=== PATIENT | male | born 1985 | race Two or more races ===

== ENCOUNTER 2025-02-24 12:42 | Emergency (ER) | payer MEDICAID, OTHER ==
[~2025-02-24] VITALS: Ht 170.2 cm; Wt 104.8 kg
[2025-02-24] MEDS: SODIUM CHLORIDE 0.9% 1,000 ML IV ONE (13:30)
--- NOTE | 2025-02-24 13:35 | ED.PDOC ---
HPI (NEURO) HPI Comments This is a 39 year old male presenting to the ED with chief complaint of headache. Patient reports that he has been experiencing a left sided headache with associated left upper jaw pain for the past 3 days. Patient relays that he had taken Ibuprofen and Tylenol with no relief noted. Patient denies any fall, injury, numbness, weakness, tingling, or dizziness. Chief Complaint: Headache Time Seen by MD: 13:34 Reviewed Notes: Nurses Notes, Medications, Allergies Information Source: Patient Mode of Arrival: Ambulatory Severity: Moderate Headache Severity: Moderate Timing: Hours Duration: Since onset Prehospital treatment: None Headache Quality: Aching Headache Location: Temporal Onset: At rest Circumstances: Spontaneous Symptoms: None Associated Signs and Symptoms: Headache Past Medical History PAST MEDICAL HISTORY: Denies Surgical History: Denies all surgeries Family History Family History: Reviewed,noncontributory to illness Social History Smoker: Non-Smoker Alcohol: Denies ETOH Use Drugs: Denies Drug Use Lives In: Home Constitutional: denies: chills, diaphoresis, fatigue, fever, malaise, sweats, weakness, others EENTM: denies: blurred vision, double vision, ear bleeding, ear discharge, ear drainage, ear pain, ear ringing, eye pain, eye redness, hearing loss, mouth pain, mouth swelling, nasal discharge, nose bleeding, nose congestion, nose pain, photophobia, tearing, throat pain, throat swelling, voice changes, others Respiratory: denies: cough, hemoptysis, orthopnea, SOB at rest, shortness of breath, SOB with excertion, stridor, wheezing, others Cardiovascular: denies: chest pain, dizzy spells, diaphoresis, Dyspnea on exertion, edema, irregular heart beat, left arm pain, lightheadedness, palpitations, PND, syncope, others Gastrointestinal: denies: abdomen distended, abdominal pain, blood streaked bowels, constipated, diarrhea, dysphagia, difficulty swallowing, hematemesis, melena, nausea, poor appetite, poor fluid intake, rectal bleeding, rectal pain, vomiting, others Genitourinary: denies: burning, dysuria, flank pain, frequency, hematuria, incontinence, penile discharge, penile sore, pain, testicle pain, testicle swelling, urgency, others Neurological: reports: headache; denies: dizziness, fainting, left sided numbness, left sided weakness, numbness, paresthesia, pre-existing deficit, right sided numbness, right sided weakness, seizure, speech problems, tingling, tremors, weakness, others Musculoskeletal: denies: back pain, gout, joint pain, joint swelling, muscle pain, muscle stiffness, neck pain, others Integumetry: denies: bruises, change in color, change in hair/nails, dryness, laceration, lesions, lumps, rash, wounds, others Allergic/Immunocompromised: denies: Difficulty Healing, Frequent Infections, Hives, Itching, others Hematologic/Lymphatic: denies: anemia, blood clots, easy bleeding, easy bruising, swollen glands, others Endocrine: denies: excessive hunger, excessive sweating, excessive thirst, excessive urination, flushing, intolerance to cold, intolerance to heat, unexplained weight gain, unexplained weight loss, others Psychiatric: denies: anxiety, bipolar disorder, depression, hopeless, panic disorder, schizophrenia, sleepless, suicidal, others All Other Systems: Reviewed and Negative Physical Exam General Appearance: No Apparent Distress, Normal HEENT: Normal ENT Inspection, Pharynx Normal, TMs Normal Neck: Full Range of Motion, Non-Tender, Normal, Normal Inspection Respiratory: Chest Non-Tender, Lungs Clear, No Accessory Muscle Use, No Respiratory Distress, Normal Breath Sounds Cardiovascular: No Edema, No JVD, No Murmur, No Gallop, Normal Peripheral Pulses, Regular Rate/Rhythm Breast Exam: Deferred Gastrointestinal: No Organomegaly, Non Tender, No Pulsatile Mass, Normal Bowel Sounds, Soft Genitalia: Deferred Pelvic: Deferred Rectal: Deferred Extremities: No calf tenderness, Normal capillary refill, Normal inspection, Normal range of motion, Non-tender, No pedal edema Musculoskeletal : Apperance: Normal Neurologic: Alert, fruit or nut picker II-XII nml as Tested, No Motor Deficits, Normal Affect, Normal Mood, No Sensory Deficits Cerebellar Function: Normal Reflexes: Normal Skin: Dry, Normal Color, Warm Lymphatic: No Adenopathy Was a procedure done? Was a procedure done?: No Differential Diagnosis (SZ) Seizure: N/A CVA: Other (Migraine) X-Ray, Labs, Meds, VS Vital Signs Date Time Temp Pulse Resp B/P (MAP) Pulse Ox O2 Delivery O2 Flow Rate FiO2 02/24/25 16:19 100 17 97 Room Air* 0 21 02/24/25 15:15 98.4 02/24/25 14:05 98.6 100 17 145/87 (106) 97 98.6 02/24/25 12:44 98.7 103 16 147/85 97 98.7 Current Medications Medications (Trade) Dose Ordered Sig/Mariia Route Start Time Stop Time Status Last Admin Sodium Chloride 1,000 ml @ 1,000 mls/hr Q1H ONCE IV 02/24/25 13:30 02/24/25 14:29 DC 02/24/25 13:30 Ketorolac Tromethamine (Toradol Injection) 15 mg ONCE ONCE IV 02/24/25 13:30 02/24/25 13:31 DC 02/24/25 16:13 Acetaminophen (Tylenol Tablet) 650 mg ONCE ONCE PO 02/24/25 13:30 02/24/25 13:31 DC 02/24/25 15:15 Metoclopramide HCl (Reglan Injection) 10 mg ONCE ONCE IV 02/24/25 13:30 02/24/25 13:31 DC 02/24/25 16:12 Time of 1ST Reevaluation: 14:32 Reevaluation 1ST: Unchanged Patient Education/Counseling: Diagnosis, Treatment Family Education/Counseling: No Family Present Departure 1 Departure Time of Disposition: 16:53 (Patient likely with a migraine. Patient is feeling significantly better we will discharge patient home with outpatient follow up) Impression: Primary Impression: Migraine Disposition: 01 HOME / SELF CARE / HOMELESS Condition: Stable Additional Instructions: You likely had a migraine. You received medications in the ER. You can take tylenol and motrin as needed for pain. You should stay well rested and well hydrated. It is important to follow up with your regular doctor within one week. If your symptoms worsen or you have any other concerns then please return to the ER. Discharged With: Self Critical Care Note Critical Care Time?: No Stability Stability form required: No Heart Score Heart Score: Heart Score Response (Comments) Value History N/A 0 EKG N/A 0 Age N/A 0 Risk Factors N/A 0 Troponin N/A 0 Total 0 I personally scribed for MARBIN GONZALEZ MD ([email or web address]) on 02/24/25 at 13:35. Electronically submitted by Nba Coates ([email or web address]). MARBIN GONZALEZ MD Feb 24, 2025 13:35
[2025-02-24] MEDS: ACETAMINOPHEN 325 MG TAB PO ONE (15:15)
[2025-02-24] MEDS: METOCLOPRAMIDE HCL 5MG/ml INJ 2ml VIAL IV ONE (16:12)
[2025-02-24] MEDS: KETOROLAC TROMETH 30 MG/ML 1ML VIAL IV ONE (16:13)
[2025-02-24 16:19] VITALS: PULSE 100; RESP 17; O2SAT 97
[2025-02-24 17:26] VITALS: BP 123/87; PULSE 84; RESP 18; TEMP 98.9; O2SAT 96
== END 2025-02-24 17:33 | disposition home or self-care (01) ==
LOC: ER 12:42
DX: G43.909 Migraine, unspecified, not intractable, without status migrainosus (principal)
CPT/HCPCS: 96361; 96374; 96375; 99284; J1885; J2765; J7030